=== PATIENT | male | born 1975 | race Caucasian/White ===

== ENCOUNTER 2018-04-21 02:54 | Emergency (ER) | payer BC ==
[~2018-04-21] VITALS: Ht 180.3 cm; Wt 89.8 kg
[2018-04-21 02:54] VITALS: BP_SYST 148
--- NOTE | 2018-04-21 02:54 | NUR ---
Patient to ER bed 08 for evaluation. Side rails up. Report given to DEBBIE Espinal
--- NOTE | 2018-04-21 02:57 | NUR ---
Patient brought in with family complaining of left eye pain x 2 days with ulcer to eye. Patient states that he already has a prescription for antibiotics. Patient complains of 8/10 pain. No other complaints/injuries per patient or as noted. Will continue to monitor.
[2018-04-21] MEDS ORDERED: GENTAMICIN SULFATE 0.3% OPHT. 5 ML DROPS OP ONE (03:00)
--- NOTE | 2018-04-21 03:00 | NUR ---
ALDAIR Perla at bedside examining patient.
[2018-04-21] MEDS ORDERED: TETRACAINE HCL 0.5% OPHTHALMIC DROPS 15 ML OP ONE (03:15)
[2018-04-21] MEDS ORDERED: traMADol HCL HCL 50 MG TABLET (ULTRAM) PO ONE (03:15)
--- NOTE | 2018-04-21 03:25 | NUR ---
No adverse reactions noted after medication administration. Will continue to monitor.
[2018-04-21 03:26] VITALS: BP_SYST 132
--- NOTE | 2018-04-21 03:26 | NUR ---
Patient given written and verbal discharge instructions and verbalizes understanding. ER MD discussed with patient the results and treatment provided. Patient in stable condition. ID arm band removed. Rx of Ciprodex otic suspension given. Patient educated on pain management and to follow up with PMD. Pain Scale 2/10 tolerable to patient. Opportunity for questions provided and answered. Medication side effect fact sheet provided.
== END 2018-04-21 03:26 | disposition home or self-care (01) ==
LOC: SED 02:54
DX: H16.002 Unspecified corneal ulcer, left eye (principal)
CPT/HCPCS: 99284